=== PATIENT | female | born 1950 | race Caucasian/White ===

== ENCOUNTER 2016-12-25 08:56 | Emergency (ER) | payer OTHER ==
[~2016-12-25] VITALS: Ht 175.3 cm; Wt 77.2 kg
[2016-12-25 09:01] VITALS: Ht 175.3 cm; Wt 77.2 kg
[2016-12-25] MEDS ORDERED: ASCO1CAP3 PO (09:24)
[2016-12-25] MEDS ORDERED: SODIUM CHLORIDE 0.9% 1000ML 1,000 ML IV ONE (09:37)
[2016-12-25] MEDS ORDERED: KETOROLAC TROMETHAMINE 30 MG/ML VIAL IV STA (09:37)
[2016-12-25] MEDS ORDERED: SODIUM CHLORIDE 0.9% 1000ML 1,000 ML IV STA (09:37)
[2016-12-25] MEDS ORDERED: ONDANSETRON INJ 2 MG/ML 2 ML VIAL IV STA (09:37)
[2016-12-25] MEDS ORDERED: OPTIRAY 320 IV PRN (09:45)
[2016-12-25 10:07] LABS: BASO % 0.2 %; BASO ABS # 0.02 K/uL (0-0.2); COMPLETE YES; EOS % 0.1 %; HEMATOCRIT 38.6 % (37-47); IG% 0.2 %; LYMPH % 6.3 %; LYMPH ABS # 0.81 K/uL (1.2-3.4); MEAN CELL VOLUME 92.3 fL (80-100); MEAN CORPUSCULAR HEMOGLOBIN 31.1 pg (25-34); MEAN CORPUSCULAR HGB CONC 33.7 g/dl (32-36); MEAN PLATELET VOLUME 10.2 fL (7.4-10.4); MONO % 4.7 %; NEUT % 88.5 %; PLATELET COUNT 259 K/uL (130-400); RED BLOOD COUNT 4.18 M/uL (4.2-5.4); WHITE BLOOD COUNT 12.88 K/uL (4.8-10.8)
[2016-12-25 10:08] VITALS: TEMP 36.6
[2016-12-25 10:28] LABS: BUN/CREATININE RATIO 14.8 (10-20); CALCIUM 9.5 mg/dl (8.5-10.1); CREATININE 0.61 mg/dl (0.60-1.20); POTASSIUM 3.5 mmol/L (3.5-5.1)
--- NOTE | 2016-12-25 10:52 | EMERGENCY ROOM VISIT NOTE ---
History Report prepared by Shena: Freddy Torres Under the Supervision of: Dr. Feng Mario M.D. First contact with patient: 09:29 Chief Complaint: FEVER Stated Complaint: ABD CRAMPS, NAUSEA, CORCORAN, LOOSE STOOL, FEVER History of Present Illness The patient is a 66 year old female who presents to the Emergency Room with complaints of a persistent illness beginning two days ago. She states that her symptoms began with abdominal cramping and sweating during the night. Her symptoms include diarrhea, nausea, headache and low-grade fever. The patient denies any blood in her stool, urinary symptoms, chest pain, neck pain, joint pain, rashes, SOB, or cough. She feels that she is dehydrated as she has not been drinking much water due to the nausea. She has taken Tylenol for her symptoms. The patient notes that she was water-skiing at [facility] recently and likely swallowed water there. She denies any recent trauma. Source of History: patient Onset: Two days ago Quality: other (illness) Timing: other (persistent) Associated Symptoms: + fevers (low-grade), + headache, + nausea, + abdominal pain (cramping), + diarrhea, No cough, No neck pain, No chest pain, No SOB, No hematochezia, No urinary symptoms, No rash Note: Additional symptoms: sweatiness. She denies any joint pain. Review of Systems See HPI for pertinent positives & negatives. A total of 10 systems reviewed and were otherwise negative. Past Medical & Surgical Medical Problems: (1) No Known Active Medical Problems Old medical records were reviewed. Nurse's notes were reviewed and I agree with. Family History No pertinent family history stated. Social History Smoking Status: Never Smoker Housing Status: lives alone Current/Historical Medications Scheduled Ascorbic Acid (Vitamin C), 500 MG PO DAILY Ciprofloxacin Hcl (Cipro), 500 MG PO BID Metronidazole (Flagyl), 500 MG PO TID Allergies Coded Allergies: Sulfa Antibiotics (Unverified Allergy, Unknown, ., 12/25/16) Physical Exam Vital Signs Date Time Temp Pulse Resp B/P (MAP) Pulse Ox O2 Delivery O2 Flow Rate FiO2 12/25/16 14:24 70 139/80 12/25/16 12:04 57 20 144/82 99 12/25/16 10:08 36.6 12/25/16 09:58 61 20 160/84 100 7/18/17 09:01 36.7 72 18 141/87 99 Room Air Physical Exam General: Non-ill appearing, non-toxic middle aged female in no acute distress. HEENT: Normal cephalic atraumatic. Pupils are equal round and reactive to light. Extraocular movements are intact. Oropharynx is pink with moist mucous membranes. No swelling of the mouth lips or tongue. Neck: Supple with a midline trachea. No meningeal signs or stiffness, no JVD or bruits. No Stridor. Negative Brudzinski and Kernig signs. Chest: Clear to auscultation bilaterally. No wheezes or rhonchi. No increased work of breathing. Heart: regular rate and rhythm. Abdomen: Moderately diffusely tender in the lower abdomen bilaterally, soft, nondistended without rebound guarding or rigidity. No tenderness over the gallbladder. Extremities: No cyanosis clubbing or edema. No calf tenderness or assymetry Spine/Back. Non tender to palpation. No CVA tenderness Skin: Good turgor without rashes. Neurologic exam: Cranial nerves two through 12 are intact. Motor and sensation are intact and symmetrical throughout. Medical Decision & Procedures ER Provider Diagnostic Interpretation: US/CT results as stated below per my review and radiologist interpretation: ABD/PELVIS IV CONTRAST ONLY FINDINGS: Mild dependent bibasilar atelectasis. Liver is generally uniform. Mild prominence of the biliary ductal system. Extra hepatic bile duct measures 8 mm. Multiple gallstones in a somewhat distended gallbladder. Potential trace pericholecystic edematous change. No evidence for distention of the pancreatic duct. Kidneys enhance uniformly. There is minimal cortical scarring of the kidneys. Appendix is normal. Abdominal bowel pattern is nonobstructive. The pelvis shows evidence for acute mid/lower sigmoid diverticulitis. Moderate wall thickening and moderate pericolonic infiltrative change. No evidence is evidence for abscess collection or obstruction at the current time. IMPRESSION: 1. Acute sigmoid diverticulitis. 2. Moderate pericolonic infiltrative change and wall thickening 3. 4. No evidence for abscess collection or obstruction. 5. Gallstones in a somewhat distended gallbladder with mild distention of the intra and extrahepatic biliary duct system. 6. Right upper quadrant ultrasonography is suggested to exclude acute cholecystitis and potential choledocholithiasis. The above report was generated using voice recognition software. It may contain grammatical, syntax or spelling errors. Electronically signed by: Alexi Hinton M.D. 12/25/2016 11:09 AM GALLBLADDER-ABD LIMITED FINDINGS: Imaged pancreas appears normal with distal body and tail obscured by bowel gas. No pancreatic ductal dilatation. Imaged hepatic parenchyma is within normal limits. Large shadowing stones are seen within the gallbladder lumen with the gallbladder wall measuring upper limits of normal at 3 mm. No pericholecystic fluid and sonographic Miller sign was reported as negative. Common bile duct is dilated, 1.0 cm without obstructing stone or mass identified. 3 mm nonshadowing echogenic focus of the superior pole right kidney is noted without calcification seen on CT of same day. This may reflect a small AML. IMPRESSION: 1. Cholelithiasis without significant gallbladder wall thickening or pericholecystic fluid collection to suggest acute cholecystitis. Sonographic Miller sign was negative. 2. Common bile duct dilation, 1.0 cm without obstructing stone or mass identified. 3. 3 mm non-shadowing echogenic focus of the superior pole right kidney may reflect calculus or small angiomyolipoma. The above report was generated using voice recognition software. It may contain grammatical, syntax or spelling errors. Electronically signed by: Saeid Joe M.D. Laboratory Results 12/25/16 09:30 Red Blood Count 4.18, Mean Corpuscular Volume 92.3, Mean Corpuscular Hemoglobin 31.1, Mean Corpuscular Hemoglobin Concent 33.7, Mean Platelet Volume 10.2, Neutrophils (%) (Auto) 88.5, Lymphocytes (%) (Auto) 6.3, Monocytes (%) (Auto) 4.7, Eosinophils (%) (Auto) 0.1, Basophils (%) (Auto) 0.2, Neutrophils # (Auto) 11.40, Lymphocytes # (Auto) 0.81, Monocytes # (Auto) 0.61, Eosinophils # (Auto) 0.01, Basophils # (Auto) 0.02 12/25/16 09:30 Test 12/25/16 09:30 12/25/16 09:57 White Blood Count 12.88 K/uL (4.8-10.8) Red Blood Count 4.18 M/uL (4.2-5.4) Hemoglobin 13.0 g/dL (12.0-16.0) Hematocrit 38.6 % (37-47) Mean Corpuscular Volume 92.3 fL (80-100) Mean Corpuscular Hemoglobin 31.1 pg (25-34) Mean Corpuscular Hemoglobin Concent 33.7 g/dl (32-36) Platelet Count 259 K/uL (130-400) Mean Platelet Volume 10.2 fL (7.4-10.4) Neutrophils (%) (Auto) 88.5 % Lymphocytes (%) (Auto) 6.3 % Monocytes (%) (Auto) 4.7 % Eosinophils (%) (Auto) 0.1 % Basophils (%) (Auto) 0.2 % Neutrophils # (Auto) 11.40 K/uL (1.4-6.5) Lymphocytes # (Auto) 0.81 K/uL (1.2-3.4) Monocytes # (Auto) 0.61 K/uL (0.11-0.59) Eosinophils # (Auto) 0.01 K/uL (0-0.5) Basophils # (Auto) 0.02 K/uL (0-0.2) RDW Standard Deviation 45.3 fL (36.4-46.3) RDW Coefficient of Variation 13.4 % (11.5-14.5) Immature Granulocyte % (Auto) 0.2 % Immature Granulocyte # (Auto) 0.03 K/uL (0.00-0.02) Anion Gap 5.0 mmol/L (3-11) Est Creatinine Clear Calc Drug Dose 97.4 ml/min Estimated GFR () 111.0 Estimated GFR (Non- 95.8 BUN/Creatinine Ratio 14.8 (10-20) Calcium Level 9.5 mg/dl (8.5-10.1) Total Bilirubin 0.8 mg/dl (0.2-1) Direct Bilirubin 0.2 mg/dl (0-0.2) Aspartate Amino Transf (AST/SGOT) 97 U/L (15-37) Alanine Aminotransferase (ALT/SGPT) 154 U/L (12-78) Alkaline Phosphatase 121 U/L (45-117) Total Protein 7.2 gm/dl (6.4-8.2) Albumin 3.4 gm/dl (3.4-5.0) Lipase 75 U/L (73-393) Bedside Lactic Acid Venous 0.47 mmol/L (0.90-1.70) Date/Time Source Procedure Growth Status 12/25/16 09:40 Stool WBC Smear - Final Complete Laboratory studies as stated above per my review. Medications Administered Medications (Trade) Dose Ordered Sig/Felicia Route Start Time Stop Time Status Last Admin Dose Admin Sodium Chloride 1,000 ml @ 999 mls/hr Q1H1M STAT IV 12/25/16 09:37 12/25/16 10:37 DC 12/25/16 09:45 999 MLS/HR Sodium Chloride 1,000 ml @ 150 mls/hr Q6H40M ONCE IV 12/25/16 09:37 12/25/16 14:33 DC 12/25/16 10:02 150 MLS/HR Ondansetron HCl (Zofran Inj) 4 mg NOW STAT IV 12/25/16 09:37 12/25/16 09:41 DC 12/25/16 09:49 4 MG Ketorolac Tromethamine (Toradol Inj) 30 mg NOW STAT IV 12/25/16 09:37 12/25/16 09:41 DC 12/25/16 09:50 30 MG Ciprofloxacin (Cipro Tab) 500 mg NOW STAT PO 12/25/16 11:44 12/25/16 11:45 DC 12/25/16 12:03 500 MG Metronidazole (Flagyl Tab) 500 mg NOW STAT PO 12/25/16 11:44 12/25/16 11:45 DC 12/25/16 12:04 500 MG ECG Indication: abdominal pain Rate (beats per minute): 52 Rhythm: sinus bradycardia Findings: no acute ischemic change, no ectopy, other Comparison ECG Date: no prior available ED Course 0931: Past medical records reviewed. The patient was evaluated in room B9, and a complete history and physical examination were performed. 0937: Ordered Toradol Inj 30 mg IV, Zofran Inj 4 mg IV, Sodium Chloride 1000 ml @ 150 mls/hr IV, Sodium Chloride 1000 ml @ 999 mls/hr IV. 1036: I spoke with the patient. She is feeling much better. 1144: Ordered Flagyl Tab 500 mg PO, Cipro Tab 500 mg PO. 1324: Upon reevaluation, the patient is resting comfortably. I discussed the results and treatment plan with her. She verbalized agreement of the treatment plan. The patient was discharged home. Medical Decision Differentials include, but are not limited to; diverticulitis, colitis, viral illness, meningitis, dehydration, trauma, and electrolyte or metabolic abnormality. Blood pressure Screening: Patient was found to have an elevated blood pressure and was referred to their primary doctor for recheck and further treatment. Medication Reconciliation: I attest that I have personally reviewed the patient' s current medication list. This patient comes in as described above. She has had abdominal cramping and crampy diarrhea as well as a temperature. She is afebrile feels a lot better at present. She is tender in the lower abdomen. She has a headache mostly in the right side. She has nothing to suggest meningitis or encephalitis. She is nontoxic-appearing. She's had no significant trauma. IV access established was hydrated with IV normal saline and given Toradol 30 mg IV and Zofran 4 mg IV. She is feeling quite a bit better headache it's gotten significantly better she tells me. Her white count is mildly elevated. She has no significant electrode or metabolic abnormalities. I did a CAT scan with IV contrast. It shows diverticulitis without any evidence abscess. It suggests gallbladder disease as well as gallstones. In light of this, I did an ultrasound as well. There is no acute cholecystitis but there is some common bile duct dilation. The patient's LFTs are minimally elevated. She has no tenderness on the right upper quadrant. She strongly desires to go home. She was given Cipro and Flagyl by mouth here. She does not have a primary care physician at this point and I had our case management team work with her at length to get her appointment on Saturday to be seen and established. I want to make sure that the diverticulitis is healing additionally I told her that the gallbladder probably needs to be addressed in the near future as well. At this point, I do not think that this is an acute problem however it if she has right upper quadrant pain or worsening symptoms she needs to be rechecked as well. She should be feeling better the next day or 2 and I told her if she has fever continues or she has worsening pain or symptoms she should be rechecked immediately. She was sent home with prescription of Cipro and Flagyl. She is feeling better and will be discharged home with close follow-up. Impression Primary Impression: Diverticulitis Additional Impressions: Gallstones Lower abdominal pain Scribe Attestation The scribe's documentation has been prepared under my direction and personally reviewed by me in its entirety. I confirm that the note above accurately reflects all work, treatment, procedures, and medical decision making performed by me. Departure Information Dispostion Home / Self-Care Prescriptions Metronidazole (Flagyl) 500 Mg Tab 500 MG PO TID for 10 Days, #30 TAB Prov: Feng Mario M.D. 12/25/16 Ciprofloxacin Hcl (CIPRO) 500 Mg Tab 500 MG PO BID for 10 Days, #20 TAB Prov: Feng Mario M.D. 12/25/16 Referrals No Doctor, Assigned (PCP) Forms HOME CARE DOCUMENTATION FORM, IMPORTANT VISIT INFORMATION Patient Instructions My [facility] Additional Instructions Rest. Drink plenty of fluids. Use Cipro 500 mg twice a day for 10 days Use Flagyl 500 mg 3 times a day for 10 days Do not drink alcohol while on these medications as it reacts badly and will make you feel very sick Return to the ER if: Increasing pain, fever or chills, worsening symptoms, any problems concerns You should have your doctor recheck or morning return sooner if any problems Use [id number] acetaminophen/Tylenol a maximum of 2 pills every 6 hours. Take with any other medications as Tylenol Problem Qualifiers
--- NOTE | 2016-12-25 11:11 | DIAGNOSTIC IMAGING REPORT ---
ABD/PELVIS IV CONTRAST ONLY CT DOSE: 393.19 mGy.cm HISTORY: Pain eval diverticulits, colitis TECHNIQUE: Multiaxial CT images of the abdomen and pelvis were performed following the use of intravenous contrast. COMPARISON STUDY: None. FINDINGS: Mild dependent bibasilar atelectasis. Liver is generally uniform. Mild prominence of the biliary ductal system. Extra hepatic bile duct measures 8 mm. Multiple gallstones in a somewhat distended gallbladder. Potential trace pericholecystic edematous change. No evidence for distention of the pancreatic duct. Kidneys enhance uniformly. There is minimal cortical scarring of the kidneys. Appendix is normal. Abdominal bowel pattern is nonobstructive. The pelvis shows evidence for acute mid/lower sigmoid diverticulitis. Moderate wall thickening and moderate pericolonic infiltrative change. No evidence is evidence for abscess collection or obstruction at the current time. IMPRESSION: 1. Acute sigmoid diverticulitis. 2. Moderate pericolonic infiltrative change and wall thickening 3. 4. No evidence for abscess collection or obstruction. 5. Gallstones in a somewhat distended gallbladder with mild distention of the intra and extrahepatic biliary duct system. 6. Right upper quadrant ultrasonography is suggested to exclude acute cholecystitis and potential choledocholithiasis. . The above report was generated using voice recognition software. It may contain grammatical, syntax or spelling errors. Electronically signed by: Alexi Hinton M.D. 12/25/2016 11:09 AM Dictated Date/Time: 12/25/2016 11:04 AM
[2016-12-25] MEDS ORDERED: METRONIDAZOLE 250 MG TAB PO STA (11:44)
[2016-12-25] MEDS ORDERED: CIPROFLOXACIN 500 MG TAB PO STA (11:44)
[2016-12-25 12:04] VITALS: O2SAT 99
--- NOTE | 2016-12-25 12:49 | DIAGNOSTIC IMAGING REPORT ---
GALLBLADDER-ABD LIMITED HISTORY: 66 years Female acute right upper quadrant pain. COMPARISON: CT abdomen and pelvis 12/25/2016 TECHNIQUE: Multiple real-time sonographic images of the abdominal right upper quadrant were obtained assessing grayscale appearance and color Doppler flow. FINDINGS: Imaged pancreas appears normal with distal body and tail obscured by bowel gas. No pancreatic ductal dilatation. Imaged hepatic parenchyma is within normal limits. Large shadowing stones are seen within the gallbladder lumen with the gallbladder wall measuring upper limits of normal at 3 mm. No pericholecystic fluid and sonographic Miller sign was reported as negative. Common bile duct is dilated, 1.0 cm without obstructing stone or mass identified. 3 mm nonshadowing echogenic focus of the superior pole right kidney is noted without calcification seen on CT of same day. This may reflect a small AML. IMPRESSION: 1. Cholelithiasis without significant gallbladder wall thickening or pericholecystic fluid collection to suggest acute cholecystitis. Sonographic Miller sign was negative. 2. Common bile duct dilation, 1.0 cm without obstructing stone or mass identified. 3. 3 mm non-shadowing echogenic focus of the superior pole right kidney may reflect calculus or small angiomyolipoma. The above report was generated using voice recognition software. It may contain grammatical, syntax or spelling errors. Electronically signed by: Saeid Joe M.D. 12/25/2016 12:47 PM Dictated Date/Time: 12/25/2016 12:42 PM
[2016-12-25] MEDS ORDERED: METR-163 PO (13:50)
[2016-12-25] MEDS ORDERED: CIPR-255 PO (13:50)
[2016-12-25 14:24] VITALS: BP 139/80; PULSE 70
== END 2016-12-25 14:25 | disposition home or self-care (01) ==
LOC: C.EDB 08:58
DX: K57.32 Diverticulitis of large intestine without perforation or abscess without bleeding (principal); K80.20 Calculus of gallbladder without cholecystitis without obstruction

== ENCOUNTER 2020-01-18 19:20 | Observation (INO) ==
[2020-01-18] MEDS ORDERED: KETOROLAC 30 MG/ML VIAL IV STA (19:49)
[2020-01-18] MEDS ORDERED: MoRPHine SULFATE 4 MG/ML 1 ML CARP\\VIAL IV STA (19:49)
[2020-01-18] MEDS ORDERED: ONDANSETRON INJ 2 MG/ML 2 ML VIAL IV STA (19:49)
[2020-01-18] MEDS ORDERED: DEXAMETHASONE SOD INJ 10 MG/ML VIAL IV ONE (19:52)
--- NOTE | 2020-01-18 19:58 | Emergency Department Note ---
History of Present Illness General Chief complaint: Hip Pain Stated complaint: RIGHT HIP PAIN Time Seen by Provider: 01/18/20 19:25 Source: patient Mode of arrival: ambulatory Limitations: no limitations History of Present Illness Provider complaint: Right buttock pain Maximum Pain Intensity: 10 This is a 69-year-old female who presents to the ED with a chief complaint of right buttock pain. The patient states that on Saturday around 7:30 PM she went horseback riding in [facility]. She states that the horse was spooked and threw her off causing her to fall onto her right buttock area. She went to a local hospital there and was found to have a pubic ramus fracture. The patient was given IV morphine there and then discharged on Percocet and crutches. The patient states that she has been having exquisite pain in the right buttock area since the fall. She states that she has difficulty maneuvering and her friend drove her here because she was worried about the ou t-of-pocket expense with any additional medical care and out of network systems in [place]. The patient is continued to complain of pain in the right buttock area. She states that the pubic ramus fracture does not bother her much. Her pain is worse with certain movements and touching the area. She denies any new pains or additional injury. Home Medications Home Medications Medication Instructions Recorded Confirmed Type ASCORBIC ACID (VITAMIN C) 500 mg PO DAILY #0 12/25/16 History CIPROFLOXACIN HCL (CIPRO) 500 mg PO BID 10 Days #20 tab 12/25/16 Rx Allergies Allergy/AdvReac Type Severity Reaction Status Date / Time Sulfa (Sulfonamide Allergy Unknown . Unverified 12/25/16 09:24 Antibiotics) Past Med/Surg History Social History Smoking Status: Never smoker Feels Safe at Home: Yes Review of Systems A total of 10 systems reviewed and were otherwise negative Physical Exam Vital Signs Vital Signs - 24 hr 01/18/20 19:21 Temperature 36.6 C Temperature Source Oral Pulse Rate 76 Pulse Rhythm Regular Pulse Strength Normal Respiratory Rate 20 Respiratory Effort / Characteristics Non-Labored Respiratory Depth Normal Respiratory Pattern Regular Blood Pressure 146/83 H Blood Pressure Mean 104 Blood Pressure Position Lying Pulse Oximetry 99 Oxygen Delivery Method Room Air Sepsis Recent Fever Within 48 Hours No Sepsis New/Unexplained Change in Mental Status No Sepsis Action Taken by Nursing No Action Required CONSTITUTIONAL/VITAL SIGNS: Reviewed / noted above. GENERAL: Non-toxic in appearance. INTEGUMENTARY: Warm, dry, and Schlusser. HEAD: Normocephalic. EYES: without scleral icterus or trauma. ENT/OROPHARYNX: clear and moist. LYMPHADENOPATHY/NECK: Is supple without lymphadenopathy or meningismus. RESPIRATORY: Lungs clear and equal. CARDIOVASCULAR: Regular rate and rhythm. GI/ABDOMEN: Soft and nontender. No organomegaly or pulsatile mass. No rebound or guarding. Normal bowel sounds. EXTREMITIES: Warm and well perfused. BACK: No CVA tenderness. NEUROLOGICAL: Intact without focal deficits. PSYCHIATRIC: normal affect. MUSCULOSKELETAL: Normally developed with good muscle tone. BUTTOCK: There is tenderness to palpation of the right buttock area in the mid gluteal region. There are a few small purpleish areas that could be related to some bruising. There is also could be chronic changes of the skin. There was no deep palpable mass to suggest a deep hematoma. The patient's exam was otherwise unremarkable for any significant trauma. TRIAGE NURSING DOCUMENTATION REVIEWED. Course Administered Medications Discontinued Medications Dexamethasone (Decadron) 10 mg IV NOW ONE Stop: 01/18/20 19:53 Last Admin: 01/18/20 20:06 Dose: 10 mg Documented by: [id number] Ketorolac Tromethamine (Toradol) 30 mg IV NOW STA Stop: 01/18/20 19:50 Last Admin: 01/18/20 20:06 Dose: 30 mg Documented by: [id number] Morphine Sulfate (Morphine Sulfate) 4 mg IV NOW STA Stop: 01/18/20 19:50 Last Admin: 01/18/20 20:06 Dose: 4 mg Documented by: [id number] Ondansetron HCl (Zofran) 4 mg IV NOW STA Stop: 01/18/20 19:50 Last Admin: 01/18/20 20:06 Dose: 4 mg Documented by: [id number] Medical Decision Making Differential Diagnosis Differential includes fracture, dislocation, hematoma, contusion, nerve injury. Medical Records Attestation: I reviewed the patient's medical records. Home Medications Current Medication List: was personally reviewed by [facility] Data Radiologist's Impression: CT scan of the abdomen and pelvis was performed from the outside hospital revealed an acute nondisplaced fracture of the right inferior pubic ramus and a left piriformis muscle contusion. Chest x-ray was negative for acute disease at the outside hospital from 2 days ago. MDM Narrative The patient is a 69-year-old female with right buttock pain after falling off a horse. This occurred 2 days ago. She is having difficulty functioning because her pain is so bad. She states that Percocet is not helping much and causes some nausea. She states that her home is an old [facility] home and she has 14 steps to get up to the upstairs and she does not feel she is a capable to do this. Her own bedroom is upstairs. The patient exam as noted above. Her vital signs are stable. She is in no distress. She states that she is able to get into comfortable positions but not moving. I did get the [facility] scan from [facility] the CT scan of the abdomen pelvis with IV contrast was performed. There was an acute nondisplaced fracture of the right inferior pubic ramus. There is also swelling to the left piriformis muscle likely related to a contusion or hematoma. This is the opposite side of the patient's pain. Because the patient is having too much pain to go home and lives alone, that she will be seen by the hospitalist for overnight evaluation and PT/OT evaluation and possible pain management and/or inpatient rehab services. Impression & Plan Pain in right buttock, Closed fracture of right inferior pubic ramus Discharge Plan Visit Data Chief Complaint: Hip Pain Stated Complaint: RIGHT HIP PAIN ED Provider: Collins Shah Discharge Problem: Pain in right buttock, Closed fracture of right inferior pubic ramus Patient Disposition: Being Evaluated by Hospitalist Forms Stand Alone Forms: [facility] Prescriptions Prescriptions: No Action ASCORBIC ACID (VITAMIN C) 500 MG capsule 500 mg PO DAILY Qty: 0 RF: 0 CIPROFLOXACIN HCL (CIPRO) 500 MG tablet 500 mg PO BID 10 Days Qty: 20 RF: 0 Referrals Referrals: Yuki Valle MD [Primary Care Provider] - Discharge Problem: Closed fracture of right inferior pubic ramus Qualifiers: Encounter type: initial encounter Qualified Code(s): S32.591A - Other specified fracture of right pubis, initial encounter for closed fracture
[2020-01-18 21:11] LABS: Basophils # (auto) 0.02 K/uL (0-0.2); Basophils % (auto) 0.2 %; Eosinophils # (auto) 0.16 K/uL (0-0.5); Hematocrit (blood only) 35.4 % (37-47); Hemoglobin 11.8 g/dL (12.0-16.0); Immature Granulocytes # (auto) 0.03 K/uL (0.00-0.02); Immature Granulocytes % (auto) 0.4 %; Lymphocytes % (auto) 14.9 %; Mean Corpuscular Hemoglobin 31.1 pg (25-34); Mean Corpuscular Hgb Conc 33.3 g/dL (32-36); Mean Corpuscular Volume 93.2 fL (80-100); Mean Platelet Volume 10.9 fL (7.4-10.4); Monocytes # (auto) 0.87 K/uL (0.11-0.59); Monocytes % (auto) 10.8 %; Neutrophils # (auto) 5.76 K/uL (1.4-6.5); Neutrophils % (auto) 71.7 %; Platelet Count 175 K/uL (130-400); RDW Coefficient of Variation 13.4 % (11.5-14.5); RDW Standard Deviation 46.1 fL (36.4-46.3); White Blood Count 8.04 K/uL (4.8-10.8)
--- NOTE | 2020-01-18 21:17 | History & Physical Report ---
Date of Service January 18, 2020 Assessment & Plan (1) Pain in right buttock: Arlin is a 69-year-old female with no prior medical history presents for with ambulatory dysfunction following a fall from a horse with a hip fracture. No traumatic head injury. Right inferior pubic ramus fracture with left hematoma and subsequent ambulatory dysfunction Patient with Victorian style home and 14 stairs at home, she is unable to ambulate due to pain limitation Patient reports that pain not adequately controlled with Percocet as outpatient, minimal improvement with Toradol/morphine Discussed with case management, patient meets criteria for full admission based on hip fracture No prior history of osteoporosis, patient reports she has not had a DEXA scan No indication for surgical management PT/OT - CK mildly increased @ 205 Pain control with Tylenol, ibuprofen, tramadol. Will defer additional IV analgesics at this time, patient comfortable in bed DVT prophylaxis: SCDs FEN GI: Regular diet Disposition: MedSurg CODE STATUS: Full code (2) Closed fracture of right inferior pubic ramus: (3) No known health problems: History of Present Illness Chief Complaint: Hip fracture, ambulatory dysfunction Primary Care Provider: Yuki Valle MD Arlin is a 69-year-old female with no other past medical history who presents with ambulatory dysfunction following a fall from a horse with hip fracture 2 days ago. She reports that she was in [place] visiting family when a horse "spooked "and she fell from the horse tumbling and landing on her right side. She was seen at the emergency department in [place] who performed a CT scan which showed an acute nondisplaced right inferior pubic ramus fracture and left piriformis hematoma. They discharged her with Percocet for pain control. She returned home in [place], but notes that she has a Victorian style house with 14 stairs and notes her pain is very severe and she is unable to ambulate at home. She notes her pain jumps to a 10 out of 10 in the right buttock side/hip/buttock when she tries to bear weight or walk, but if she lays in bed and slight external rotation she has minimal pain. She denies focal weakness, and any weakness other than that which is pain limited. She denies numbness and tingling in any extremities or loss of sensation. She has been peeing normally. She reports she does not have anyone that can help her at home right now, and she does not have things at home to help manage safely such as a commode. She has never broken a large bone before, notes she has broken a finger in the past. She has no history of osteoporosis but has never had a DEXA scan or osteoporosis evaluation. Medications: No chronic medications, takes vitamin C daily Medical history: Denies Surgical history: Reviewed, denies Social history: Former intermittent tobacco use, none in many years. Endorses a total of 3 to 4 glasses of wine/alcohol per week. Denies recreational drug and marijuana use. 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 Unverified 01/18/20 21:32 Antibiotics) Home Medications Home Medications Medication Instructions Recorded Confirmed Type ascorbic acid (vitamin C) 1 g PO DAILY 01/18/20 01/18/20 History Past Med/Surg History Social History Smoking Status: Former smoker Smoking End Date: "12 years ago"; Second Hand Exposure: No; Do You Dip or Chew Tobacco: No; Hx Alcohol Use: Yes Alcohol type: beer and wine Hx Substance Use: No Preferred Language: Malian Communication Ability: Effective Beliefs That Will Affect Care: None Current Living Situation: Alone Other Information That Helps Us Care for You: No Feels Safe at Home: Yes Safety Concerns: Feels Safe At This Time Review of Systems Review of Systems: Constitutional: Endorses sweats and shaking chills with pain when she tries to bear weight, otherwise denies fever/chills. Eyes: Denies double vision, vision change, eye pain ENT: Denies ear pain, sore throat, sinus pain Cardiovascular: Denies Chest pain, chest pressure, palpitations, extremity swelling Respiratory: Denies shortness of breath, cough, sputum production, difficulty breathing Gastrointestinal: Denies abdominal pain, nausea, vomiting, constipation, diarrhea Genitourinary: Denies pain with urination, urinary retention Musculoskeletal: As noted in HPI Integumentary:Denies rash, lesions, bruising Neurological: Denies headache, numbness, tingling, focal weakness Physical Exam Physical Exam: General: A&Ox3. NAD. Cooperative. HEENT: Atraumatic, normocephalic. Pupils equal and reactive to light and accommodation. Visual acuity grossly intact. Pulm: CTAB A&P. -wheezes, -rales, -rhonchi. Symmetrical chest rise. No increase work of breathing. No respiratory distress. Cardiac: RRR, -mrg. Radial pulses intact and symmetrical. Abdominal: Nontender, nondistended, soft. BS present. Extremity: 5/5 ankle dorsiflexion/plantar flexion/inversion/eversion bilaterally without asymmetry. PT pulses intact and symmetrical. Soft touch in fingers and toes intact and symmetrical. In Class Special Education Teacher strength, interosseous, wrist flexion/extension, elbow flexion, shoulder flexion/extension 5/5 without deficit or asymmetry. Patient declines right hip skin exam "just got comfortable ". Per ED provider no observable hematoma. Results & Data Results & Data ([facility]) Vital Signs (Past 12 Hours) Vital Signs Temp Pulse Resp BP Pulse Ox 01/18/20 19:21 36.6 C 76 20 146/83 H 99 Supervising Physician Co-Signing Physician Notes Attending addendum: I have physically seen this patient, have supervised the medical residents activities, and agree with the H&P unless as otherwise noted. Assessment and Plan: Closed right pubic ramus fracture- Patient unable to ambulate her 14 stairs at home. Consult PT/OT Consult orthopedic surgery Tylenol 650 mg p.o. every 6 hours PRN mild pain or temperature. Tramadol 50 mg p.o. every 4 hours PRN moderate pain. Remaining orders and notations as noted Resident Activity Tracking Resident Involvement: Resident Care Provided Care Provided: Adult Hospital Medicine (1) Closed fracture of right inferior pubic ramus Encounter type: initial encounter Qualified Code(s): S32.591A - Other specified fracture of right pubis, initial encounter for closed fracture
[2020-01-18 21:18] LABS: BUN Creatinine Ratio 32.2 (10-20); Calcium 9.5 mg/dl (8.5-10.1); Creatinine Clr Calc Pharmacy 87.8 ml/min; Est GFR (African American) 106.5; Est GFR (Non-African American) 91.9; Potassium 3.8 mmol/L (3.5-5.1)
[2020-01-18] MEDS ORDERED: ACETAMINOPHEN 325 MG TAB PO PRN (22:36)
[2020-01-18] MEDS ORDERED: ONDANSETRON INJ 2 MG/ML 2 ML VIAL IV PRN (22:36)
[2020-01-18] MEDS ORDERED: POLYETHYLENE (MIRALAX) 17 GM PACK PO PRN (22:36)
[2020-01-19] MEDS: IBUPROFEN 600 MG TAB PO PRN ×3 (06:14→19:45)
[2020-01-19 06:17] LABS: Hematocrit (blood only) 36.7 % (37-47); Hemoglobin 12.1 g/dL (12.0-16.0); Immature Granulocytes # (auto) 0.02 K/uL (0.00-0.02); Immature Granulocytes % (auto) 0.2 %; Lymphocytes # (auto) 0.35 K/uL (1.2-3.4); Lymphocytes % (auto) 4.3 %; Mean Corpuscular Hemoglobin 30.9 pg (25-34); Mean Corpuscular Volume 93.6 fL (80-100); Mean Platelet Volume 10.3 fL (7.4-10.4); Monocytes # (auto) 0.05 K/uL (0.11-0.59); Monocytes % (auto) 0.6 %; Neutrophils % (auto) 94.9 %; Platelet Count 190 K/uL (130-400); RDW Coefficient of Variation 13.2 % (11.5-14.5); RDW Standard Deviation 45.3 fL (36.4-46.3); Red Blood Count 3.92 M/uL (4.2-5.4); White Blood Count 8.12 K/uL (4.8-10.8)
[2020-01-19 06:54] LABS: BUN Creatinine Ratio 28.2 (10-20); Calcium 9.3 mg/dl (8.5-10.1); Creatinine Clr Calc Pharmacy 111.3 ml/min; Est GFR (African American) 111.8; Est GFR (Non-African American) 96.5; Potassium 4.2 mmol/L (3.5-5.1)
[2020-01-19] MEDS: ASCORBIC ACID 500 MG TAB PO SCH (07:50)
[2020-01-19] MEDS: TRAMADOL HCL 50 MG TABLET PO PRN ×4 (07:51→23:43)
--- NOTE | 2020-01-19 11:59 | Hospitalist Progress Note ---
Date of Service January 19, 2020 Assessment & Plan (1) Pain in right buttock: Arlin is a 69-year-old female with no prior medical history presents for with ambulatory dysfunction a traumatic right hip fracture. Patient initially presented at [facility] in [place], where she was told fracture was inoperable. She was admitted for increasing pain with ambulation. CM involved, working to get patient accommodations for her home. Right inferior pubic ramus fracture with left hematoma and subsequent ambulatory dysfunction Patient with Victorian style home and 14 stairs at home - Patient cannot lay flat in bed, cannot ambulate to bathroom to use the commode Patient reports that pain not adequately controlled with Percocet as outpatient No indication for surgical management PT/OT ordered Pain control with Tylenol, ibuprofen, tramadol. Will defer additional IV analgesics at this time, patient comfortable in bed No prior history of osteoporosis, patient reports she has not had a DEXA scan; would recommend as an outpatient DVT prophylaxis: SCDs FEN GI: Regular diet [facility] CODE STATUS: Full code (2) Closed fracture of right inferior pubic ramus: (3) No known health problems: Admission and Anticipated Discharge Date Admission Date: January 18, 2020 Supervising Physician Co-Signing Physician Notes Attending attestation Pt seen and examined in concert with Dr. Teixeira. In agreement with the documented findings as noted in the resident documentation with any exceptions or additions as noted here. Resting comfortably in chair, exacerbating pain with particular movements of the right hip c/w ramus fx. Long history of athletics and solid physical baseline reported per patient. On examination, S1/S2 nl RRR no MCG. CTAB. Abd NT/ND BS+ve, distal bilateral LE are NVI Right inferior pubic ramus fracture with left hematoma and subsequent ambulatory dysfunction - PT/OT onboard, awaiting evaluation and establish at home modifications to support recovery. Pain ctrl as noted. Else see resident documentation as noted. Subjective Doing well - asking to not go to rehab, instead to have a hospital bed at home and a raised toilet seat. She has a friend here from [place] to help her transition back home. She typically lives alone in a 3 story house with 14 stairs leading up to her bedroom. Review of Systems Musculoskeletal: + joint pain (R hip) Physical Exam Constitutional: WD/WN, vitals as above cooperative Eyes: PERRL, conjunctivae normal, anicteric sclerae ENMT: external ear and nose normal, oropharynx normal Neck: normal visual inspection and trachea midline Respiratory: normal respiratory effort, lungs clear to auscultation Cardiovascular: RRR, no murmur, no edema Heart Sounds: normal S1 and normal S2 Musculoskeletal: R hip non-tender to palpation. R LE is neurovascularly intact. ROM and strength deferred. Skin: no rashes, warm and dry Psychiatric: A+Ox3, euthymic affect Results & Data Results & Data ([facility]) Vital Signs (Past 12 Hours) Vital Signs Temp Pulse Resp BP Pulse Ox 01/19/20 07:11 36.9 C 60 16 129/74 95 Resident Activity Tracking Resident Involvement: Resident Care Provided Care Provided: Adult Hospital Medicine (1) Closed fracture of right inferior pubic ramus Encounter type: initial encounter Qualified Code(s): S32.591A - Other specified fracture of right pubis, initial encounter for closed fracture
--- NOTE | 2020-01-19 20:40 | Billing Data ---
Date of Service January 19, 2020 Coding Level of Care Code 61476 Initial Inpt Care Lvl 2
[2020-01-20] MEDS: IBUPROFEN 600 MG TAB PO PRN ×2 (04:50→11:24)
--- NOTE | 2020-01-20 07:27 | Discharge Summary ---
Date of Service January 20, 2020 Admission HPI Per Admitting Provider Arlin is a 69-year-old female with no other past medical history who presents with ambulatory dysfunction following a fall from a horse with hip fracture 2 days ago. She reports that she was in [place] visiting family when a horse "spooked "and she fell from the horse tumbling and landing on her right side. She was seen at the emergency department in [place] who performed a CT scan which showed an acute nondisplaced right inferior pubic ramus fracture and left piriformis hematoma. They discharged her with Percocet for pain control. She returned home in [place], but notes that she has a Victorian style house with 14 stairs and notes her pain is very severe and she is unable to ambulate at home. She notes her pain jumps to a 10 out of 10 in the right buttock side/hip/buttock when she tries to bear weight or walk, but if she lays in bed and slight external rotation she has minimal pain. She denies focal weakness, and any weakness other than that which is pain limited. She denies numbness and tingling in any extremities or loss of sensation. She has been peeing normally. She reports she does not have anyone that can help her at home right now, and she does not have things at home to help manage safely such as a commode. She has never broken a large bone before, notes she has broken a finger in the past. She has no history of osteoporosis but has never had a DEXA scan or osteoporosi s evaluation. Medications: No chronic medications, takes vitamin C daily Medical history: Denies Surgical history: Reviewed, denies Social history: Former intermittent tobacco use, none in many years. Endorses a total of 3 to 4 glasses of wine/alcohol per week. Denies recreational drug and marijuana use. 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 NAD. Cooperative. HEENT: Atraumatic, normocephalic. Pupils equal and reactive to light and accommodation. Visual acuity grossly intact. Pulm: CTAB A&P. -wheezes, -rales, -rhonchi. Symmetrical chest rise. No increase work of breathing. No respiratory distress. Cardiac: RRR, -mrg. Radial pulses intact and symmetrical. Abdominal: Nontender, nondistended, soft. BS present. Extremity: 5/5 ankle dorsiflexion/plantar flexion/inversion/eversion bilaterally without asymmetry. PT pulses intact and symmetrical. Soft touch in fingers and toes intact and symmetrical. Duct Maker strength, interosseous, wrist flexion/extension, elbow flexion, shoulder flexion/extension 5/5 without deficit or asymmetry. Patient declines right hip skin exam "just got comfortable ". Per ED provider no observable hematoma. Principal Diagnosis Pelvis Fracture Discharge Exam Constitutional WD/WN, vitals as above cooperative Eyes PERRL, conjunctivae normal, anicteric sclerae ENMT external ear and nose normal, oropharynx normal Neck normal visual inspection and trachea midline Respiratory normal respiratory effort, lungs clear to auscultation Cardiovascular RRR, no murmur, no edema Heart Sounds: normal S1 and normal S2 Musculoskeletal Hip: no ecchymosis R Le with intact distal pulses and sensation intact to gross touch. Patient with reduced R hip ROM secondary to pain, although she does appear to have good strength with abduction and adduction Skin no rashes, warm and dry Psychiatric A+Ox3, euthymic affect Discharge Data Allergies Allergy/AdvReac Type Severity Reaction Status Date / Time Sulfa (Sulfonamide Allergy Unknown . Unverified 01/18/20 21:32 Antibiotics) Consultations 01/18/20 20:41 ED Decision to Admit Stat 01/18/20 21:55 Consult Case Management - Discharge Planning Routine Hospital Course (1) Pain in right buttock: Arlin is a 69-year-old female with no prior medical history presents with ambulatory dysfunction after sustaining a traumatic right hip fracture (she fell off a horse while riding). Patient initially presented at [facility] in [place] where she had been vacationing, where she was told the fracture was inoperable. After returning home to [place], she was admitted for increasing pain and ambulatory dysfunction. Physical therapy evaluated patient while in hospital - they recommend discharge to acute rehab due to her high fall risk, but patient adamantly denied. Patient was able to arrange for some assistive medical equipment to be delivered to her home and she was discharged with Tramadol for analgesia. Right inferior pubic ramus fracture with left hematoma and subsequent ambulatory dysfunction No indication for surgical management Patient with Victorian style home and 14 stairs to bedroom - Patient cannot lay flat in bed, cannot ambulate to bathroom to use the commode Patient reports that her pain was not adequately controlled with Percocet (it also made her nauseous) as outpatient - Physical therapy worked with patient while in hospital, recommend acute rehab stay due to high fall risk, patient adamantly refused - Despite our concern for future deconditioning/ safety (patient lives alone), she was discharged home with some medical assistive devices+ neighbor/friend support; CM working to arrange delivered meals Pain control achieved in hospital with Tylenol, ibuprofen, and tramadol. No prior history of osteoporosis, patient reports she has not had a DEXA scan Outpatient items to do: Order a routine DEXA scan (2) Closed fracture of right inferior pubic ramus: (3) No known health problems: Total Time Total Time Spent Total Time Spent (In Minutes): see attending attestation Discharge Plan Discharge Items Patient Disposition: Home - Home Health Services Reason For Visit: PELVIC FXR, AMBULATORY DYSFUNCTION Discharge Diagnosis: Pelvis Fracture Activity: As commented below Non-emergency contact: Primary Care Provider Call non-emergency contact if: your pain is concerning for you Follow-up/Referrals: Yuki Valle MD [Primary Care Provider] - 01/22/20 10:10 am Diet: Regular Addtl Attending Provider Instructions: You were hospitalized at [facility] for pain associated with a R pubic bone fracture. We treated your pain with IV and oral analgesics. You were evaluated by physical therapy while in the hospital - they recommend you attend acute rehab after being discharged due to being a fall fall risk. Therapy services was especially concerned because you live alone. However, you refused placement to acute rehab and expressed a desire to return directly to you home. You said you felt comfortable going home with some assistive health care equipment for you to use as you recover from your pelvis fracture. We sent you a script for Ultram for breakthrough discomfort. Please follow up with your PCP Dr. Yuki Valle after this hospital stay. Pending Studies at Discharge: No Stand-Alone Forms: My [facility] [employer], Smoking Cessation Medications and DC Order Prescriptions: New tramadol 50 mg tablet 50 mg PO Q6H PRN (Reason: pain) 10 Days Qty: 40 RF: 0 Continued ascorbic acid (vitamin C) 1,000 mg Tablet 1 g PO DAILY RF: 0 Discharge Orders: Discharge Order (Routine); Ordered 01/20/20 Ordered By: Aliyah Garcia/Other Patient Handouts: Preventing Deep Vein Thrombosis, Understanding the Pain Response Admission Data Admit Date/Time: 01/18/20 21:21 Attending Provider: Maxx Moser Admit Provider: Arnold Demarco Primary Care Provider: Yuki Valle Other Providers: Shreyas Willis ; [facility] Other Interventions: Discharge Summary Assessment (RN) Last Done: 01/20/20 10:05 Supervising Physician Co-Signing Physician Notes Attending attestation Pt seen and examined in concert with Dr. Teixeira. In agreement with the documented findings as noted in the resident documentation with any exceptions or additions as noted here. Pain well controlled with rest and tolerable with activity. Patient continues to refuse support/rehab outside of DME at home. On examination, S1/S2 nl RRR no MCG. CTAB. Abd NT/ND BS+ve. Good ROM with minimal pain of the right hip and knee with very decreased speed. Right inferior pubic ramus fracture with left hematoma and subsequent ambulatory dysfunction - follow with orthopaedics, DME supplied. Strongly encourage rehab but patient declines. Pain control as noted, tramadol supplied for PRN breakthru Should have DEXA through PCP Resident Activity Tracking Resident Involvement: Resident Care Provided Care Provided: Adult Hospital Medicine
[2020-01-20] MEDS: ASCORBIC ACID 500 MG TAB PO SCH (09:15)
[2020-01-20] MEDS: TRAMADOL HCL 50 MG TABLET PO PRN (09:22)
== END 2020-01-20 12:02 | disposition home health service (06) ==
LOC: ED 19:20 → 3W 21:21 → INTOOBSV 21:21 → SUATTDRO 21:21 → 3W 22:01